=== PATIENT | female | born 1930 ===

== ENCOUNTER 2017-01-09 14:29 | Emergency (ER) | payer BC, MEDICARE ==
[2017-01-09] MEDS ORDERED: Phenazopyridine TAB* 100 MG PO ONE (15:15)
[2017-01-09] MEDS ORDERED: Cephalexin CAP* 500 MG PO ONE (15:15)
[2017-01-09 15:16] VITALS: BP 123/73
--- NOTE | 2017-01-09 16:05 | UC ---
Complaint Female HPI - HPI Summary HPI Summary: pt is accompanied by personal care provider. Pt c/o dysuria, frequency and urgency X 4 days. - History Of Current Complaint Chief Complaint: UCGU Stated Complaint: URINARY COMPLAINT Time Seen by Provider: 01/09/17 14:49 Hx Obtained From: Patient ?: No Onset/Duration: Gradual Onset, Lasting Days Timing: Constant Severity Initially: Mild Severity Currently: Mild Pain Intensity: 2 Pain Scale Used: 0-10 Numeric Character: Burning Aggravating Factor(s): Urination Alleviating Factor(s): Nothing Associated Signs And Symptoms: Positive: Negative - Allergies/Home Medications Allergies/Adverse Reactions: Allergies Allergy/AdvReac Type Severity Reaction Status Date / Time Pneumococcal Polysaccharides Allergy Unknown Verified 01/09/17 14:54 [From Pneumovax] Reaction Details Rofecoxib [From Vioxx] Allergy Unknown Verified 01/09/17 14:54 Reaction Details novocain Allergy Unknown Uncoded 01/09/17 14:54 Reaction Details Home Medications: Home Medications Apixaban* [Eliquis*] 5 mg PO BID 01/09/17 [History Confirmed 01/09/17] Digoxin TAB* [Lanoxin TAB*] 0.125 mg PO DAILY 01/09/17 [History Confirmed ] Donepezil Hydrochloride [Aricept 10 MG TAB] 10 mg PO DAILY 01/09/17 [History Confirmed 01/09/17] Ferrous Sulfate TAB* 325 mg PO DAILY 01/09/17 [History Confirmed 01/09/17] Furosemide TAB* [Lasix TAB*] 40 mg PO BID 01/09/17 [History Confirmed 01/09/17] Memantine TAB* [Namenda TAB*] 10 mg PO BID 01/09/17 [History Confirmed 01/09/17] Metoprolol Tartrate TAB* [Lopressor TAB*] 25 mg PO DAILY 01/09/17 [History Confirmed 01/09/17] Potassium Chlor TAB* [Potassium Chlor TAB 20 MEQ*] 20 meq PO TID 01/09/17 [ History Confirmed 01/09/17] Senna TAB* [Senokot TAB*] 1 tab PO DAILY 01/09/17 [History Confirmed 01/09/17] Sertraline* [Zoloft*] 50 mg PO DAILY 01/09/17 [History Confirmed 01/09/17] Simvastatin [Zocor 5 MG-] 10 mg PO DAILY 01/09/17 [History Confirmed 01/09/17] Vitamin B Complex TAB* [Complex B-100*] 1 tab PO DAILY 01/09/17 [History Confirmed 01/09/17] PMH/Surg Hx/FS Hx/Imm Hx Previously Healthy: Yes Cardiovascular History: Cardiac Disease, Hypertension - Surgical History Surgical History: Yes Surgery Procedure, Year, and Place: 2016 prolapsed uterus sx - Family History Known Family History: Positive: Cardiac Disease - Social History [facility]: [facility] Alcohol Use: None Substance Use Type: None Smoking Status (MU): Never Smoked Tobacco Review of Systems Constitutional: Negative Skin: Negative Eyes: Negative ENT: Negative Respiratory: Negative Cardiovascular: Negative Gastrointestinal: Negative Genitourinary: Dysuria, Frequency, Urgency Motor: Negative Neurovascular: Negative Musculoskeletal: Negative Neurological: Negative Psychological: Negative All Other Systems Reviewed And Are Negative: Yes Physical Exam Triage Information Reviewed: Yes Appearance: Well-Appearing Vital Signs: Initial Vital Signs Temp 98.2 F 01/09/17 14:47 Pulse 80 01/09/17 14:47 Resp 16 01/09/17 14:47 BP 123/73 01/09/17 14:47 Pulse Ox 98 01/09/17 14:47 Vital Signs Reviewed: Yes Respiratory Exam: Normal Cardiovascular Exam: Other Cardiovascular: Positive: Murmur:Sys:Grade _?_/ - 5/6 Musculoskeletal Exam: Normal Neurological Exam: Normal Psychological Exam: Normal Skin Exam: Normal Complaint Female Dx - Differential Dx/Diagnosis Differential Diagnosis/HQI/PQRI: Urinary Tract Infection Provider Diagnoses: UTI Discharge - Discharge Plan Condition: Stable Disposition: HOME Prescriptions: Cephalexin CAP* [Keflex 500 CAP*] 500 mg PO Q12H #10 cap Phenazopyridine TAB* [Pyridium 100 mg TAB*] 100 mg PO TID #6 tab Patient Education Materials: Urinary Tract Infection in Women (ED) Referrals: Teja Frias MD [Primary Care Provider] -
== END 2017-01-09 15:31 | disposition home or self-care (01) ==
LOC: UCCORT 14:29
DX: N39.0 Urinary tract infection, site not specified (principal); I10 Essential (primary) hypertension
CPT/HCPCS: 81003; 87086; 99202; A9270-GY; G0463

== ENCOUNTER 2017-10-09 13:31 | Emergency (ER) | payer MEDICARE, BC ==
--- NOTE | 2017-10-09 14:14 | UC ---
Skin Complaint HPI - HPI Summary HPI Summary: She lives at [facility] [place] and has a hx of poor peripheral circulation, vascular dementia, chronic edema. She has a wound on the back of the left calf that has been present. They have a wound care nurse that has been dressing this. Prior [facility] records reviewed and she has only been here twice in 2017 once for a UTi. No admissions. Med list reviewed from long-term but there is suggestion of chf and afib by the meds. - History of Current Complaint Chief Complaint: UCLowerExtremity Time Seen by Provider: 10/09/17 13:47 Stated Complaint: BI LAT LEG COMP Hx Obtained From: Family/Production Control Specialist Hx From Patient Unobtainable Due To: Dementia Onset/Duration: Gradual Onset, Lasting Weeks Skin Exposure Onset/Duration: Weeks Ago Timing: Constant Onset Severity: Moderate Current Severity: Moderate Pain Intensity: 0 Location: Discrete Aggravating Factor(s): Touch Alleviating Factor(s): Other - special dressings. Associated Signs & Symptoms: Positive: Tenderness. Negative: Fever, Chills, Cough Related History: Extremes of Age, Use of Diuretics - Allergy/Home Medications Allergies/Adverse Reactions: Allergies Allergy/AdvReac Type Severity Reaction Status Date / Time pneumococcal vaccine Allergy Unknown Verified 10/09/17 13:47 [From Pneumovax 23] Reaction Details rofecoxib [From Vioxx] Allergy Unknown Verified 10/09/17 13:47 Reaction Details novocain Allergy Unknown Uncoded 01/09/17 14:54 Reaction Details Review of Systems Constitutional: Negative Skin: Other - skin wound. All Other Systems Reviewed And Are Negative: Yes PMH/Surg Hx/FS Hx/Imm Hx Previously Healthy: No - Atrial fib, chf, PVD, vascular dementia. - Surgical History Surgical History: Yes Surgery Procedure, Year, and Place: 2017 prolapsed uterus sx - Family History Known Family History: Positive: Cardiac Disease - Social History [facility]: [facility] Alcohol Use: None Substance Use Type: None Smoking Status (MU): Never Smoked Tobacco Physical Exam Triage Information Reviewed: Yes Appearance: Well-Appearing, No Pain Distress, Obese, Other: - clearly demented but pleasant, non toxic and alert. Vital Signs: Initial Vital Signs Temp 98.1 F 10/09/17 13:48 Pulse 93 10/09/17 13:48 Resp 20 10/09/17 13:48 BP 85/60 10/09/17 13:48 Pulse Ox 100 10/09/17 13:48 Vital Signs Reviewed: Yes Eyes: Positive: Conjunctiva Clear. Negative: Conjunctiva Inflamed ENT: Positive: Normal ENT inspection Neck: Positive: Supple, Nontender, No Lymphadenopathy Respiratory: Positive: Lungs clear, Normal breath sounds, No respiratory distress, No accessory muscle use. Negative: Respiratory distress, Decreased breath sounds, Accessory muscle use, Crackles Cardiovascular: Positive: Delayed Capillary Refill, Other: - systolic murmur diffuse anterior chest. Irregularly irregular. jason feet warm and there is 3 second cap refill jason feet. there is diffuse pitting edema up to the knees and it is difficult to assess pulses. Abdomen Description: Positive: Nontender, No Organomegaly. Negative: Distended , Guarding Musculoskeletal: Positive: Edema @ Neurological: Positive: Alert, Muscle Tone Normal Skin Exam: Other - Jason venous stasis changes. Left posterior distal calf wound there is no drainage, odor, peripheral redness. There is good granulation tissue. Discharge - Discharge Plan Referrals: Teja Frias MD [Primary Care Provider] -
== END 2017-10-09 14:45 | disposition left against medical advice (07) ==
LOC: UCCORT 13:31
DX: S81.802A Unspecified open wound, left lower leg, initial encounter (principal); Z53.21 Procedure and treatment not carried out due to patient leaving prior to being seen by health care provider